=== PATIENT | female | born 1990 | race Caucasian/White ===

== ENCOUNTER 2016-06-16 11:35 | Emergency (ER) | payer MEDICAID ==
--- NOTE | 2016-06-16 14:29 | ERNOTE ---
ENT HPI Date of Service: 06/16/16 Presenting Symptoms: other - Sore throat Time Seen by Provider: 06/16/16 14:20 Source: patient, RN notes reviewed Exam Limitations: no limitations - Immun/Allergies/Home Medications Immunizations: IMMUNIZATION HX Immunizations Up to Date Yes History of Influenza Vaccine No Hx Pneumococcal Vaccination No Allergies/Adverse Reactions: Allergies Allergy/AdvReac Type Severity Reaction Status Date / Time ibuprofen AdvReac Verified 06/16/16 11:57 Home Medications: HOME MEDICATIONS NK [No Home Medication] 06/16/16 [Last Taken Unknown] - History of Present Illness Narrative: Dayanna is a 26 year old female who presents to the ED for a sore throat that began yesterday. She has also had a runny nose and cough. She has taken some cold medication without improvement. ENT Location: Present: throat Prearrival Treatment: Present: over the counter meds Associated Symptoms - ENT: Reports: cough, sore throat, nasal congestion/ drainage. Denies: fever, malaise, poor fluid intake, poor solid intake, facial pain/swelling, tooth pain, ear drainage, headache Review of Systems - Review of Systems Constitutional: Present: See HPI EYE: Present: no symptoms reported ENT: Present: See HPI Respiratory: Absent: shortness of breath, wheezing Cardiology: Present: no symptoms reported Gastrointestinal/Abdominal: Absent: nausea, vomiting, abdominal pain Genitourinary: Present: no symptoms reported Musculoskeletal: Absent: muscle pain, neck pain Skin: Present: no symptoms reported Neurological: Present: See HPI Endocrine: Present: no symptoms reported Hematologic/Lymphatic: Present: no symptoms reported Psych: Present: no symptoms reported - Patient's Past Medical History Patient History - Medical: No pertinent hx Patient History - Cardiac/Respiratory: No pertinent hx Patient History - Cancer: No Hx of Cancer Patient History - Surgical Procedures: Other - Social History Living Situations: home Smoking Status: Current every day smoker Have you smoked in the past 12 months: Yes Alcohol Use: occasionally Drug Use: none Physical Exam - Physical Exam General Appearance: Present: wd/wn, alert, no apparent distress Ears, Nose, Throat: Present: hearing grossly normal, nasal congestion, tonsillar swelling - right. Absent: abnormal TM (R), abnormal TM (L), sinus pain/drainage, tonsillar exudate Neck: Present: normal inspection, nontender, supple Respiratory: Present: no respiratory distress, normal breath sounds, no accessory muscle use, lungs clear Cardiovascular/Chest: Present: regular rate, rhythm, no murmur Neurological Exam: Present: alert, oriented, normal mood/affect Skin Exam: Present: normal color, warm/dry ED Progress - Results and Orders Patient's Lab Results:: I have reviewed the patient's lab results. - Vital Signs Patient's Vital Signs:: I have reviewed the patient's vital signs. Vital Signs: Vital Signs 06/16/16 11:56 Temperature 36.2 C L Pulse Rate 99 Respiratory 14 Rate Blood Pressure 107/73 O2 Sat by Pulse 100 Oximetry - Progress/Reassessment Chief Complaint: Sore Throat Progress:: Unchanged Departure Clinical Impression: Upper respiratory infection, viral - Departure Disposition: Home self-care Condition: Good Instructions: Upper Respiratory Infection, Adult, [id number] Additional Instructions: Increase fluid intake Nasal saline spray for congestion Humidifier Tylenol and/or ibuprofen for pain/fever Follow up with your doctor if symptoms persist longer than 10 days
[2016-06-16 14:42] VITALS: BP 105/65
== END 2016-06-16 14:37 | disposition home or self-care (01) ==
LOC: ER 11:35
DX: J06.9 Acute upper respiratory infection, unspecified (principal); F17.210 Nicotine dependence, cigarettes, uncomplicated

== ENCOUNTER 2016-09-03 10:26 | Emergency (ER) | payer MEDICAID ==
[2016-09-03 10:37] VITALS: BP 111/66
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
--- NOTE | 2016-09-03 11:25 | ERNOTE ---
ENT HPI Date of Service: 09/03/16 Presenting Symptoms: other - Sore throat Time Seen by Provider: 09/03/16 10:50 Source: patient, RN notes reviewed Exam Limitations: no limitations - Immun/Allergies/Home Medications Immunizations: IMMUNIZATION HX Immunizations Up to Date Yes History of Influenza Vaccine No Hx Pneumococcal Vaccination No Allergies/Adverse Reactions: Allergies Allergy/AdvReac Type Severity Reaction Status Date / Time ibuprofen AdvReac Verified 09/03/16 10:37 Home Medications: HOME MEDICATIONS NK [No Home Medication] 06/16/16 [Last Taken Unknown] - History of Present Illness Narrative: 26 y/o female ambulatory to the ED for a sore throat that began a few days ago. She has also been trying to get after just stopping her Depo Provera, and has taken home tests with questionable results. She was in town visiting a relative, and decided that we didn't look busy so she should come in for a strep test and maybe a test. She has an appointment with her OB/ Ssrs Report Developer next month. ENT Location: Present: throat Prearrival Treatment: Present: no prearrival treatment Associated Symptoms - ENT: Reports: sore throat. Denies: fever, malaise, poor fluid intake, poor solid intake, cough, voice change, nasal congestion/drainage , facial pain/swelling, ear drainage, headache Review of Systems - Review of Systems Constitutional: Absent: fever, chills, malaise EYE: Present: no symptoms reported ENT: Present: See HPI Respiratory: Present: See HPI Gastrointestinal/Abdominal: Present: no symptoms reported Genitourinary: Present: other - irregular menses. Absent: frequency, pain, discharge Musculoskeletal: Absent: muscle pain, neck pain Skin: Absent: rash, lesions Neurological: Present: See HPI Endocrine: Present: no symptoms reported Hematologic/Lymphatic: Present: no symptoms reported Psych: Present: no symptoms reported - Patient's Past Medical History Patient History - Medical: No pertinent hx Patient History - Cardiac/Respiratory: No pertinent hx Patient History - Cancer: No Hx of Cancer Patient History - Surgical Procedures: Other Patient History - Other: None LMP (Calendar): 08/24/16 - Social History Living Situations: home Abuse History: No History of abuse Psych History: No pertinent hx Smoking Status: Current every day smoker Cigarettes Packs Per Day: 0.5 Alcohol Use: occasionally Drug Use: none - Immunizations Immunizations Up to Date: Yes Hx Pneumococcal Vaccination: No History of Influenza Vaccine: No Physical Exam - Physical Exam General Appearance: Present: wd/wn, alert, no apparent distress Eye Exam: Normal inspection: bilateral Ears, Nose, Throat: Present: pharyngeal erythema, tonsillar swelling. Absent: nasal congestion, sinus pain/drainage, pharyngeal swelling, tonsillar exudate, dry mucous membranes Neck: Present: normal inspection, nontender, supple. Absent: lymphadenopathy (R ), lymphadenopathy (L) Respiratory: Present: no respiratory distress, normal breath sounds, no accessory muscle use, lungs clear Cardiovascular/Chest: Present: regular rate, rhythm, no murmur Neurological Exam: Present: alert, oriented, normal mood/affect, no motor/ sensory deficits Skin Exam: Present: normal color, warm/dry ED Progress - Results and Orders Patient's Lab Results:: I have reviewed the patient's lab results. - Vital Signs Patient's Vital Signs:: I have reviewed the patient's vital signs. Vital Signs: Vital Signs 09/03/16 09/03/16 10:26 10:30 Temperature 36.7 C Pulse Rate 89 Respiratory 14 Rate Blood Pressure 107/73 111/66 O2 Sat by Pulse 100 Oximetry - Progress/Reassessment Chief Complaint: Sore Throat Progress:: Unchanged Plan - Plan Plan: Negative strep test Discussed home tests vs. having a blood test here. Informed that this is not warranted on an emergent basis today. Departure Clinical Impression: Sore throat (viral), Irregular menses - Departure Disposition: Home self-care Condition: Good Instructions: Sore Throat, [id number], Test Information Additional Instructions: Stop smoking Decrease caffeine intake Avoid alcohol Take a vitamin See mallet and die cutter as scheduled Referrals: Tyler Feldman MD [Primary Care Provider] -
== END 2016-09-03 11:21 | disposition home or self-care (01) ==
LOC: ER 10:26
DX: J02.9 Acute pharyngitis, unspecified (principal); N92.6 Irregular menstruation, unspecified; F17.210 Nicotine dependence, cigarettes, uncomplicated

== ENCOUNTER 2016-10-02 19:56 | Emergency (ER) | payer MEDICAID ==
[2016-10-02 20:06] VITALS: BP 108/68
--- NOTE | 2016-10-02 20:51 | ERNOTE ---
Back Pain ER HPI Presenting Symptoms: injury/pain to back Time Seen by Provider: 10/02/16 20:36 Source: patient Exam Limitations: no limitations Immunizations: IMMUNIZATION HX Immunizations Up to Date Yes History of Influenza Vaccine No Hx Pneumococcal Vaccination No Allergies/Adverse Reactions: Allergies ibuprofen Adverse Reaction (Verified 09/03/16 10:37) DRUMMOND Home Medications: HOME MEDICATIONS Naproxen [Naprosyn] 500 mg PO BID #20 tablet 10/02/16 [Last Taken Unknown] Sulfamethoxazole/Trimethoprim [Bactrim Ds] 1 tab PO BID 10/02/16 [Last Taken Unknown] traMADol HCL [Ultram] 50 - 100 mg PO QID PRN #20 tab 10/02/16 [Last Taken Unknown] Narrative: Pt was playing on the slide with her 2 yo child. At the bottom of the slide it is level with the ground with a small amount of foam padding. She came off the slide and slid directly onto her bottom. This was somewhat painful but she thought would go away. Throughout the day the pain has not improved Timing: Reports: getting worse Quality/Severity: Reports: moderate Location of pain: Reports: other - right sacrum down to coccyx Activities at Onset: Reports: activity Recent Injury?: Reports: yes Possible Precipitating Factor: Reports: trauma Modifying Factors - (Improves): Reports: nothing Modifying Factors - (Worsens): Reports: other - sitting Associated Symptoms: Denies: numbess/weakness in legs Review of Systems - Review of Systems Constitutional: Present: no symptoms reported EYE: Present: no symptoms reported ENT: Present: no symptoms reported Respiratory: Present: no symptoms reported Cardiology: Present: no symptoms reported Gastrointestinal/Abdominal: Absent: no symptoms reported Genitourinary: Present: no symptoms reported Musculoskeletal: Present: See HPI. Absent: back pain Skin: Present: no symptoms reported Neurological: Absent: weakness, numbness Endocrine: Present: no symptoms reported Hematologic/Lymphatic: Present: no symptoms reported Psych: Present: no symptoms reported - Patient's Past Medical History Patient History - Medical: UTI'S Patient History - Cardiac/Respiratory: No pertinent hx Patient History - Cancer: No Hx of Cancer Patient History - Surgical Procedures: Other Patient History - Other: None LMP (females 10-50): this week LMP (Calendar): 08/24/16 - Social History Living Situations: significant other Abuse History: No History of abuse Psych History: No pertinent hx Smoking Status: Current every day smoker Alcohol Use: occasionally Drug Use: none - Immunizations Immunizations Up to Date: Yes Hx Pneumococcal Vaccination: No History of Influenza Vaccine: No Physical Exam - Physical Exam General Appearance: Present: wd/wn, alert, no apparent distress Neck: Present: normal inspection, nontender, supple Respiratory: Present: no respiratory distress Back Exam: Present: normal inspection, normal range of motion, no CVA tenderness , no vertebral tenderness, other - Tender from right SI along the right lateral border of the sacrum to the coccyx, no tenderness of body or left side of sacrum or ischial tuberosities Extremity Exam: Present: normal inspection, non-tender, normal range of motion, pelvis stable Skin Exam: Present: normal color, warm/dry ED Progress - Vital Signs Vital Signs: Vital Signs 10/02/16 19:59 Temperature 36.8 C Pulse Rate 88 Respiratory 14 Rate Blood Pressure 108/68 O2 Sat by Pulse 100 Oximetry - X-Ray X-Ray #1 X-Ray: lumbosacral - Sacrum/ coccyx: sight irregularity to distal coccygeal segment, possible non-displaced fracture Interpretation: Interp. by me - Progress/Reassessment Chief Complaint: Back Pain Departure Clinical Impression: Fractured coccyx Qualifiers: Encounter type: initial encounter Fracture type: closed Qualified Code(s): S32.2XXA - Fracture of coccyx, initial encounter for closed fracture - Departure Disposition: Home self-care Condition: Good Instructions: Tailbone Injury, [id number] Referrals: Tlyer Feldman MD [Primary Care Provider] - Prescriptions: Naproxen [Naprosyn] 500 mg PO BID #20 tablet traMADol HCL [Ultram] 50 - 100 mg PO QID PRN #20 tab PRN Reason: Pain
--- OUTSIDE RECORDS SUMMARY | 2016-10-02 21:09 | XMS REPORT | Continuity of Care Document ---
:1990 Author Organization [facility] ([facility]) Address [address] [place] [address] Phone [phone] Care Team Providers Name Role Phone GastonTyler Primary Care Provider [phone] Source Comments This disclosure is being made pursuant to the Care Everywhere program, applicable federal and state laws, and may not contain all informaitonavailable regarding this patient.[facility] ([facility]) Active Allergies and Adverse Reactions No Known [...] every 8 hours as needed. Indications: Nausea pvgvbwo-iarkflcxhvnqr-lkn Take 1 Tab by 12 Tab 0 [...]
[2016-10-02] MEDS ORDERED: traMADol HCL 50 MG TABLET PO ONE (22:13)
[2016-10-02] MEDS ORDERED: traMADol HCL 50 MG TABLET ONE (22:20)
== END 2016-10-02 22:22 | disposition home or self-care (01) ==
LOC: ER 19:56
DX: S32.2XXA Fracture of coccyx, initial encounter for closed fracture (principal); W09.0XXA Fall on or from playground slide, initial encounter; Z87.440 Personal history of urinary (tract) infections; F17.210 Nicotine dependence, cigarettes, uncomplicated

== ENCOUNTER 2016-10-06 23:00 | Emergency (ER) | payer MEDICAID ==
[2016-10-06] MEDS ORDERED: traMADol HCL 50 MG TABLET PO ONE (23:35)
[2016-10-06] MEDS ORDERED: traMADol HCL 50 MG TABLET ONE (23:37)
--- NOTE | 2016-10-06 23:44 | ERNOTE ---
Back Pain ER HPI Time Seen by Provider: 10/06/16 23:27 Source: patient Exam Limitations: no limitations Immunizations: IMMUNIZATION HX Immunizations Up to Date Yes History of Influenza Vaccine No Hx Pneumococcal Vaccination No Allergies/Adverse Reactions: Allergies ibuprofen Adverse Reaction (Verified 09/03/16 10:37) DRUMMOND Home Medications: HOME MEDICATIONS Naproxen [Naprosyn] 500 mg PO BID #20 tablet 10/02/16 [Last Taken Unknown] Sulfamethoxazole/Trimethoprim [Bactrim Ds] 1 tab PO BID 10/02/16 [Last Taken Unknown] traMADol HCL [Ultram] 50 - 100 mg PO QID PRN #20 tab 10/02/16 [Last Taken Unknown] Narrative: Patient fell going down a slide and injured her tailbone. She was seen in the ER and given prescription for tramadol and naproxen. Her pain is not getting better, she now has pain going down the back of her right thigh and numbness. She feels that her right hip is giving out on her, she has not fallen again, no problems with bowel and bladder function Date (Duration): 10/01/16 Location of pain: Reports: lower back, radiating to rt thigh/leg Recent Injury?: Reports: yes Associated Symptoms: Denies: fever/chills, sweating, constipation/incontinence, nausea/vomiting, problems urinating, difficulty walking, lightheadedness Prior Treament: Reports: recently seen Review of Systems - Review of Systems Constitutional: Absent: recent illness, fever Respiratory: Absent: shortness of breath Cardiology: Absent: chest pain Gastrointestinal/Abdominal: Absent: nausea Genitourinary: Present: no symptoms reported Musculoskeletal: Present: See HPI Neurological: Present: See HPI, numbness - Patient's Past Medical History Patient History - Medical: UTI'S Patient History - Cardiac/Respiratory: No pertinent hx Patient History - Cancer: No Hx of Cancer Patient History - Surgical Procedures: Other Patient History - Other: None LMP (females 10-50): last week LMP (Calendar): 08/24/16 - Social History Living Situations: significant other Abuse History: No History of abuse Psych History: No pertinent hx Smoking Status: Current every day smoker Alcohol Use: occasionally Drug Use: none - Immunizations Immunizations Up to Date: Yes Hx Pneumococcal Vaccination: No History of Influenza Vaccine: No Physical Exam - Physical Exam General Appearance: Present: wd/wn, alert, no apparent distress Respiratory: Present: no respiratory distress, normal breath sounds, lungs clear Cardiovascular/Chest: Present: regular rate, rhythm, no murmur Back Exam: Present: normal inspection, no vertebral tenderness, other - right lower buttock, pain on right leg straigt leg raise Neurological Exam: Present: alert, oriented, normal mood/affect, no motor/ sensory deficits Skin Exam: Present: normal color, warm/dry ED Progress - Vital Signs Patient's Vital Signs:: I have reviewed the patient's vital signs. Vital Signs: Vital Signs 10/06/16 23:05 Temperature 36.6 C Pulse Rate 98 Respiratory 14 Rate Blood Pressure 114/71 O2 Sat by Pulse 100 Oximetry - X-Ray X-Ray #1 X-Ray: hip - no acute findings Interpretation: Interp. by me - Progress/Reassessment Chief Complaint: Back Pain Progress Note-Subjective: 10/07/16 00:30 pain better after tramadol, discussed normal hip xray Departure Clinical Impression: Contusion of lower back Qualifiers: Encounter type: initial encounter Qualified Code(s): S30.0XXA - Contusion of lower back and pelvis, initial encounter - Departure Disposition: Home self-care Condition: Good Instructions: Sciatica, [id number] Additional Instructions: take your pain medications as prescribed, call your doctor in the morning for follow up Referrals: Tyler Feldman MD [Primary Care Provider] -
--- OUTSIDE RECORDS SUMMARY | 2016-10-07 00:18 | XMS REPORT | Continuity of Care Document ---
:1990 Author Organization [facility] ([facility]) Address [address] [place] [address] Phone [phone] Care Team Providers Name Role Phone GastonTyler Primary Care Provider [phone] Source Comments This disclosure is being made pursuant to the Care Everywhere program, applicable federal and state laws, and may not contain all informaitonavailable regarding this patient.[facility] ([facility]) Active Allergies and Adverse Reactions No [...] every 8 hours as needed. Indications: Nausea baolnxq-kpsnjbvyeykon-eij Take 1 Tab by 12 Tab 0 [...]
[2016-10-07 00:38] VITALS: BP 129/73
== END 2016-10-07 00:36 | disposition home or self-care (01) ==
LOC: ER 23:00
DX: S30.0XXA Contusion of lower back and pelvis, initial encounter (principal); W09.0XXD Fall on or from playground slide, subsequent encounter

== ENCOUNTER 2019-09-20 22:34 | Observation (INO) ==
[2019-09-20] MEDS ORDERED: RINGER'S SOLUTION,LACTATED 1,000 ML IV PRN (22:42)
[2019-09-21] MEDS: TERBUTALINE SULFATE 1 MG/ML VIAL SC ONE ×2 (00:34→01:47)
[2019-09-21] MEDS: ACETAMINOPHEN 500 MG TABLET PO ONE (00:43)
[2019-09-21 02:49] LABS: Urine Bilirubin Negative (NEGATIVE); Urine Blood Negative /ul (NEGATIVE); Urine Ketone Negative (NEGATIVE); Urine Nitrite Negative (NEGATIVE); Urine Protein Negative (NEGATIVE); Urine Specific Gravity <=1.005 SP.GR. (1.005-1.010); Urine Urobilinogen Normal (NORMAL); Urine pH 6.5 pH (5.0-7.0)
[2019-09-21 02:54] VITALS: BP 109/69
[2019-09-21] MEDS: BETAMETHASONE ACETATE,SOD PHOS 6 MG/ML VIAL IM ONE (02:54)
[2019-09-21] MEDS: NIFEdipine 10 MG CAPSULE PO ONE (02:54)
[2019-09-21 03:04] LABS: Urine Appearance Clear (CLEAR); Urine Bacteria None Seen; Urine Color Pale Yellow; Urine RBC None Seen /hpf (0-5); Urine WBC None Seen /hpf (0-5)
--- NOTE | 2019-09-21 03:58 | HP ---
Chief Complaint - Chief Complaint Date of Service: 09/21/19 Time of Service: 03:49 Chief Complaint: contractions History of Present Illness: 29 year old at 32w 5d who presented to labor and delivery complaining of contractions q3-5 minutes since 202909/20/2019. She denies vaginal bleeding or loss of fluid. Denies urinary symptoms. Fetus is active. GBS was collected on admission to L&D 2250 ft/20/-3 anterior 0020 ft/20/-3 mid position 0130 -3 posterior 0235 3 mid position She is s/p 2 doses of terbutaline and one dose of procardia 30 mg PO x1 Betamethasone given at 0254 Medical History (Last Reviewed 09/21/19 @ 03:52 by Maggie Walter MD) Hemorrhagic cyst of right ovary (Acute) with uncertain viability (Acute) 5w3d by gestational sac by u/s on 03/11/19. Body piercing Onset Date: Unknown Hallux valgus Onset Date: ~09/2011 Right foot Migraine Onset Date: 05/10/13 w/aura Seasonal allergies Onset Date: Unknown Spina bifida aperta of lumbar region without hydrocephalus Onset Date: Unknown Tattoos Onset Date: Unknown Varicose veins of lower extremity Onset Date: Unknown Wears glasses Onset Date: Unknown Abdominal pain in female (Resolved) Onset Date: Unknown Abnormal Pap smear of cervix Onset Date: ~2012 Acute streptococcal pharyngitis (Resolved) Onset Date: Unknown Back pain (Resolved) Onset Date: ~02/2013 Pulled muscles in shoulder, back and pinched nerve in back Bacterial vaginitis (Resolved) Onset Date: Unknown Cervical dysplasia Onset Date: ~2017 Col[place] LLQ abdominal pain (Resolved) Conjunctivitis (Resolved) Onset Date: Unknown Contusion of left foot, initial encounter (Resolved) Onset Date: Unknown Contusion of left knee (Resolved) Onset Date: Unknown Contusion of lower back (Resolved) Onset Date: Unknown Ectopic Onset Date: 02/20/15 In [place]tx[place] w/medication Foot pain Onset Date: ~08/2011 Peroneal tendon weakness Fractured coccyx (Resolved) Onset Date: ~09/2016 Hematuria (Resolved) Onset Date: Unknown Irregular menses (Resolved) Onset Date: Unknown Knee pain Onset Date: Unknown Left Left ovarian cyst (Resolved) Onset Date: Unknown Simple 2.38cm Meniscal injury (Resolved) Onset Date: Unknown Pelvic pain (Resolved) Onset Date: Unknown Plantar fasciitis of right foot (Resolved) Onset Date: Unknown contractions (Resolved) Onset Date: ~2016 Sciatica (Resolved) Onset Date: Unknown Strep throat (Resolved) Onset Date: Unknown Synovitis and tenosynovitis Onset Date: ~2013 Toe contusion (Resolved) Onset Date: Unknown UTI (urinary tract infection) (Resolved) Onset Date: Unknown Upper respiratory infection, viral (Resolved) Onset Date: Unknown Surgical History: Surgical History (Last Reviewed 09/21/19 @ 03:52 by Maggie Walter MD) H/O arthroscopic knee surgery Onset Date: 09/21/13 [place]-Synovectomy History of colposcopy Onset Date: 08/07/17 History of loop electrical excision procedure (LEEP) Onset Date: 10/17/17 [place] teeth extracted Onset Date: ~2007 Family History: Family History (Last Reviewed 09/21/19 @ 03:52 by Maggie Walter MD) Mother Heart disease Heart defect/arrhythmia, tachycardia Father Alive and well Grandmother Asthma On O2 @ age 68 Social History: (Last Reviewed 09/21/19 @ 03:52 by Maggie Walter MD) Social History: adopted: Yes usp: No Marital status: lives independently: Yes household members: significant other, children number of children: 3 current occupational status: employed current occupation: manager health current occupational exposures/hazards: No Highest education level completed: some college, no degree Sexually Active: Yes Service: No Tobacco: Smoking Status: Former smoker Smoking cigarettes per day: 5 Alcohol: alcohol intake: current alcohol intake frequency: a few times a month details: No alcohol since + UPT Substance Use: substance use type: does not use Dietary Habits: caffeine: Yes caffeine comment: 1-2/day Exercise: Physical activity type: walking frequency: other Alicia/Anabaptism: agree to transfusion: Yes Review Of Systems (GEN) - Review of Systems Generalized/Overall Review: Present: No Symptoms Reported Genitourinary: Present: Other - contractions Misc: All systems neg except as marked Immunizations: IMMUNIZATION HX Immunizations Up to Date Yes History of Influenza Vaccine Yes Hx Pneumococcal Vaccination No Allergies/Adverse Reactions: Allergies Allergy/AdvReac Type Severity Reaction Status Date / Time ibuprofen AdvReac Mild Headache Verified 09/20/19 23:00 Home Medications: HOME MEDICATIONS [id number] 400 mcg-om3 35 mg-dha 25 mg-epa 5 mg-fish oil chewable tablet 2 tab PO DAILY tab 03/11/19 [Last Taken Unknown] Exam - Exam Vital Signs: Vital Signs - Last Taken Temp 36.7 C 09/20/19 23:21 Pulse 110 H 09/21/19 02:54 Resp 18 09/20/19 23:21 BP 109/69 09/21/19 02:54 Pulse Ox 99 09/20/19 23:21 Constitutional: Present: Alert, Oriented x3, Cooperative, Well developed, Well nourished, No distress ENT Exam: Present: hearing grossly normal Eye Exam: bilateral eye: normal inspection Neck: Present: normal inspection Back Exam: Present: normal inspection, no CVA tenderness Breasts: Present: Exam deferred Respiratory: Present: lungs clear, normal breath sounds Cardiovascular/Chest: Present: regular rate, rhythm Abdomen: Present: soft, nontender, nondistended, no rebound tenderness /Rectal: Present: Other - 07/15/ mid position per RN exam Extremity: Present: non-tender, no calf tenderness Skin Exam: Present: normal color, warm/dry, no cyanosis Neurologic: Present: alert, normal mood/affect, oriented x 3 Appearance: Present: appropriate appearance, appropriate insight, neat, no memory impairment Eye contact: Present: cooperative, good eye contact, normal speech Thoughts: Present: normal thought pattern Diagnostic Studies: Laboratory Results Urine Color Pale yellow 09/21/19 02:45 Urine Appearance Clear (CLEAR) 09/21/19 02:45 Urine pH 6.5 pH (5.0-7.0) 09/21/19 02:45 Ur Specific [place] <=1.005 SP.GR. (1.005-1.010) 09/21/19 02:45 Urine Protein Negative mg/dL (NEGATIVE) 09/21/19 02:45 Urine Glucose (UA) Negative mg/dL (NEGATIVE) 09/21/19 02:45 Urine Ketones Negative mg/dL (NEGATIVE) 09/21/19 02:45 Urine Blood Negative /ul (NEGATIVE) 09/21/19 02:45 Urine Nitrate Negative (NEGATIVE) 09/21/19 02:45 Urine Bilirubin Negative mg/dl (NEGATIVE) 09/21/19 02:45 Urine Urobilinogen Normal EU/dl (NORMAL) 09/21/19 02:45 Ur Leukocyte Esterase Negative /ul (NEGATIVE) 09/21/19 02:45 Urine RBC None seen /hpf (0-5) 09/21/19 02:45 Urine WBC None seen /hpf (0-5) 09/21/19 02:45 Ur Epithelial Cells Trace /hpf (0-5) 09/21/19 02:45 Urine Bacteria None seen (NONE) 09/21/19 02:45 Urine Culture Comments No culture indicated 09/21/19 02:45 Assessment/Plan - Narrative Narrative: 29 year old at 32w 5d 1. PTL: continues to make cervical change and regular contractions. s/p 2 doses of terbutaline and one dose of procardia without a change in the patient's contractions. UA is negative. Wet prep pending. GBS collected. Vertex by exam and US done 09/16/2019. s/p steroids. Transfer to [facility] for a higher level of care - Assessment/Plan (1) Threatened labor Problem: Acute Qualifiers: Trimester: third trimester Qualified Code(s): O47.03 - False labor before 37 completed weeks of gestation, third trimester
--- NOTE | 2019-09-21 04:01 | DS ---
(1) Threatened labor Problem: Acute Qualifiers: Trimester: third trimester Qualified Code(s): O47.03 - False labor before 37 completed weeks of gestation, third trimester Date of Discharge:: 09/21/19 Hospital Course: The patient was observed and had cervical change and regular contractions not responding to terbutaline or procardia. She received the first dose of steroids. For this reason she was transferred to [facility]. Procedures Performed: none Results and Findings: Lab Pending Results 09/21/19 02:45: Urine Color Pale yellow, Urine Appearance Clear, Urine pH 6.5, Ur Specific [place] <=1.005, Urine Protein Negative, Urine Glucose (UA) Negative, Urine Ketones Negative, Urine Blood Negative, Urine Nitrate Negative, Urine Bilirubin Negative, Urine Urobilinogen Normal, Ur Leukocyte Esterase Negative, Urine RBC None seen, Urine WBC None seen, Ur Epithelial Cells Trace, Urine Bacteria None seen, Urine Culture Comments No culture indicated Disposition: Short Term Hospital Inpatient Condition: Good Discharge Activity: Activity as tolerated Discharge Diet: General/regular food Referrals: Tyler Feldman MD [Primary Care Provider] - Complete Home Medications List: Complete Home Medication List: [id number] 400 mcg-om3 35 mg-dha 25 mg-epa 5 mg-fish oil chewable tablet 2 tab PO DAILY tab 03/11/19
== END 2019-09-21 04:15 | disposition short-term general hospital (02) ==
LOC: OBCLINIC 22:34 → INTOOBSV 09-21 03:29 → OB 09-21 03:29
PROVIDERS: ADMIT Obstetrics & Gynecology; ATTEND Obstetrics & Gynecology
DX: O47.03 False labor before 37 completed weeks of gestation, third trimester
CPT/HCPCS: 59025; 81001; 87081; 87210; 96372

== ENCOUNTER 2019-10-13 20:25 | Observation (INO) ==
[2019-10-13 21:23] VITALS: BP 110/69
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
[2019-10-13] MEDS ORDERED: BETAMETHASONE ACETATE,SOD PHOS 6 MG/ML VIAL IM ONE (23:27)
--- NOTE | 2019-10-14 08:44 | PN ---
Subjective - Date and Time Seen Date: 10/14/19 Time: 08:40 Subjective Narrative: Patient without complaints Objective Objective Narrative: See vital signs - Review of Systems Generalized/Overall Review: Reports: No Symptoms Reported Misc: All systems neg except as marked - Vitals Vitals: Last Vital Signs Temp 37.4 C 10/13/19 21:05 Pulse 97 10/13/19 21:05 Resp 18 10/13/19 21:05 BP 110/69 10/13/19 21:05 Pulse Ox 96 10/13/19 21:05 - Exam Constitutional: Present: Alert, Oriented x3, Cooperative, No distress ENT Exam: Present: hearing grossly normal Neck: Present: normal inspection Breasts: Present: Exam deferred Abdomen: Present: soft, nontender, nondistended /Rectal: Present: Exam deferred Extremity: Present: non-tender, no calf tenderness Skin Exam: Present: normal color, warm/dry, no cyanosis Neurologic: Present: alert, normal mood/affect, oriented x 3 Appearance: Present: appropriate appearance, appropriate insight Eye contact: Present: cooperative, good eye contact Thoughts: Present: normal thought pattern Assessment/Plan Plan Narrative: 29 year old at 36w 0d No cervical change overnight. Discharge patient US for growth at 1100 Follow-up with Dr. Cleveland or sooner for any other concerns
--- NOTE | 2019-10-14 08:58 | DS ---
Date of Discharge:: 10/14/19 Hospital Course: The patient was admitted overnight and given a dose of steroids. She did not have significant cervical change and thus will be discharged today Procedures Performed: none Discharge Location: Home Disposition: Home self-care Condition: Good Discharge Activity: Activity as tolerated Discharge Diet: General/regular food Referrals: Tyler Feldman MD [Primary Care Provider] - Complete Home Medications List: Complete Home Medication List: [id number] 400 mcg-om3 35 mg-dha 25 mg-epa 5 mg-fish oil chewable tablet 2 tab PO DAILY tab 03/11/19
== END 2019-10-14 09:15 | disposition home or self-care (01) ==
LOC: OBCLINIC 20:25 → OB 20:25
PROVIDERS: ADMIT Obstetrics & Gynecology; ATTEND Obstetrics & Gynecology
DX: O71.89 Other specified obstetric trauma; Z3A.36 36 weeks gestation of pregnancy; O60.03 Preterm labor without delivery, third trimester
CPT/HCPCS: 59025; 87081; 96372; G0378

== ENCOUNTER 2019-10-15 18:19 | Inpatient (IN) ==
[2019-10-15] MEDS ORDERED: DEXTROSE 5%-LACTATED RINGERS 500 ML IV PRN (20:45)
[2019-10-15 21:05] LABS: Hematocrit 33.3 % (37.0-47.0); Hemoglobin 11.1 gm/dL (12.5-16.0); Mean Cell Volume 86.3 fl (78-100); Mean Corpuscular Hemoglobin 28.8 pg (27-31); Mean Corpuscular Hgb Conc 33.3 g/dl (32-36); Mean Platelet Volume 9.8 fl (8-12.5); Neutrophil # 12.6 K/mm3 (1.3-6.0); Neutrophil % 76.4 % (42-75.0); Platelet Count 247 K/mm3 (150-450); Red Blood Count 3.86 M/mm3 (4.2-5.4); Red Cell Distribution Width 12.4 % (11.5-14.0); White Blood Count 16.5 K/mm3 (4.0-10.5)
[2019-10-15] MEDS: DEXTROSE 5%-LACTATED RINGERS 1,000 ML IV PRN (21:28)
[2019-10-15 22:21] LABS: Cocaine Ur Negative (NEGATIVE); Urine Barbiturate Negative (NEGATIVE); Urine Benzodiazepines Negative (NEGATIVE); Urine Opiates Negative (NEGATIVE); Urine PCP Negative (NEGATIVE); Urine THC Negative (NEGATIVE)
[2019-10-16] MEDS: DEXTROSE 5%-LACTATED RINGERS 1,000 ML IV PRN (00:53)
[2019-10-16] MEDS ORDERED: RINGER'S SOLUTION,LACTATED 1,000 ML IV ONE (05:48)
[2019-10-16] MEDS ORDERED: ONDANSETRON 4 MG TAB.RAPDIS PO PRN (05:48)
[2019-10-16] MEDS ORDERED: OXYTOCIN/DEXTROSE 5%-WATER 30 UNITS/500 ML BAG IV ONE (05:48)
[2019-10-16] MEDS ORDERED: ceFAZolin SODIUM 1 GM VIAL IV PRN (07:00)
[2019-10-16] MEDS ORDERED: OXYTOCIN 20 UNITS in RINGER'S SOLUTION,LACTATED 1,000 ML IV ONE ×2 (07:00→09:06)
[2019-10-16] MEDS ORDERED: RINGER'S SOLUTION,LACTATED 1,000 ML IV PRN (09:06)
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
[2019-10-16] MEDS ORDERED: ceFAZolin SODIUM 1 GM VIAL ONE (09:16)
--- NOTE | 2019-10-16 09:29 | ANES ---
Anesthesia Pre Procedure Eval Vitals/Labs: Last Vital Signs Temp 37.5 C 10/15/19 19:00 Pulse 108 H 10/15/19 19:00 Resp 16 10/15/19 19:00 BP 119/72 10/15/19 19:00 Pulse Ox 100 10/15/19 19:00 HOME MEDICATIONS [id number] 400 mcg-om3 35 mg-dha 25 mg-epa 5 mg-fish oil chewable tablet 2 tab PO DAILY tab 03/11/19 [Last Taken 10/12/19] Allergies/Adverse Reactions: Allergies Allergy/AdvReac Type Severity Reaction Status Date / Time ibuprofen AdvReac Mild Headache Verified 10/15/19 18:33 - Planned Procedure Planned Procedure: C/S Medication List Reviewed:: Yes Allergies Verified: Yes Medical History (Last Reviewed 10/16/19 @ 09:28 by Ken Bee CRNA) Body piercing (Chronic) Onset Date: Unknown Hallux valgus Onset Date: ~09/2011 Right foot Migraine Onset Date: 05/10/13 w/aura Seasonal allergies Onset Date: Unknown Spina bifida aperta of lumbar region without hydrocephalus Onset Date: Unknown Cervical dysplasia Onset Date: ~2017 Ectopic Onset Date: 02/20/15 [place]-tx'd w/medication Fractured coccyx (Resolved) Onset Date: ~09/2016 Surgical History (Last Reviewed 10/16/19 @ 09:28 by Ken Bee CRNA) H/O arthroscopic knee surgery Onset Date: 09/21/13 [place]-Synovectomy History of colposcopy Onset Date: 08/07/17 History of loop electrical excision procedure (LEEP) Onset Date: 10/17/17 [place] teeth extracted Onset Date: ~2007 Family History (Last Reviewed 10/16/19 @ 09:28 by Ken Bee CRNA) Mother Heart disease Heart defect/arrhythmia, tachycardia Father Alive and well Grandmother Asthma On O2 @ age 68 - Family Anesthesia History Family History:: no untoward family reactions to anesthesia, no familial bleeding tendencies, no family history of clotting disorders, no family history of premature - Airway/Neck/Teeth Within Normal Limits:: Yes Teeth Condition: intact Mallampatti Score: 2 Thyromental (T-M) distance: > 6 cm Mandibulo Hyoid distance: > 3 cm - Respiratory Respiratory Physical: lungs clear - Cardiovascular Tolerate Activity: Good Heart Sounds: S1 & S2, Regular - Gastrointestinal NPO since: mn - Anesthesia Assessment and Plan ASA Class: PS, II, E Anesthesia Type Plan: Block - Bilateral ultrasound guided TAP blocks for postop analgesia, Spinal
[2019-10-16] MEDS ORDERED: MIDAZOLAM HCL/PF 5 MG/ML VIAL ONE (09:31)
[2019-10-16] MEDS ORDERED: PROPOFOL VIAL IV ONE (09:31)
[2019-10-16] MEDS ORDERED: fentaNYL CITRATE/PF 50 MCG/ML AMPUL ONE (09:31)
[2019-10-16] MEDS ORDERED: ONDANSETRON HCL/PF 2 MG/ML VIAL ONE (09:31)
[2019-10-16] MEDS ORDERED: BUPIVACAINE HCL/EPINEPHRINE/PF 30 ML VIAL IJ ONE (09:31)
--- NOTE | 2019-10-16 11:14 | ANES ---
Post Anesthesia Discharge - Transfer of Care Transfer of Care handoff given to nurse: Yes - Discharge from PACU Discharge from PACU when meets criteria: Yes - Discharge to ASU Discharge to ASU-no complications/pt stable: Yes
--- NOTE | 2019-10-16 11:15 | ANES ---
Post Anesthesia Assessment - Vital Signs Vitals: Last Vital Signs Temp 36.5 C 10/16/19 11:00 Pulse 79 10/16/19 11:10 Resp 16 10/16/19 11:10 BP 116/69 10/16/19 11:10 Pulse Ox 100 10/16/19 11:10 Airway Patency: Normal - Mental Status Level Of Consciousness: Awake - Pain Level Pain Score: 0 - N/V Assessment Nausea/Vomiting Presence: None Dehydration:: No
--- NOTE | 2019-10-16 11:15 | ANES ---
Anesthesia Procedure Note Procedure Note: ANESTHESIA PROCEDURE NOTE Date of Procedure: 10/16/2019. Time of procedure: 1105. Performed by: Ken Bee CRNA Catering Assistant: None. Preprocedure diagnosis: section. Post procedure diagnosis: Same. Procedure: Bilateral ultrasound-guided transversus abdominis plane block for postop analgesia. Indications: The patient is a 29-year-old female post section. Findings: See below. Details of the procedure: ChloraPrep was used on the patient's abdomen and the procedure was performed under sterile technique. The right abdominal fascial layer between the internal oblique muscle and the transversus abdominis muscles was identified under ultrasound guidance. A 21-gauge 4 inch block needle was inserted under ultrasound guidance to the target fascial plane. 15 mL's of 0.5% bupivacaine plus epinephrine 1:200,000 was injected after negative aspiration for blood. The needle was removed intact and the procedure was then repeated at the left side. No complications were noted. The images were retained in the hospital medical database. EBL: Minimal. Fluids: N/A. Specimen: N/A. Post procedure condition: The patient tolerated the procedure well. No complications were noted. Thank you for this consultation. Ken Bee CRNA
--- NOTE | 2019-10-16 11:21 | OR ---
Operative Report - Dictated Report Narrative: Indication: 29-year-old 5 para 3 admitted for labor at 36 1/7 weeks during course of observation tracing had periods of sinusoidal rhythm and frequent late decelerations which became more frequent. Status: Planned Pre Operative Diagnosis: 36 2/7th week intrauterine . SGA with developing IUGR. intolerance to labor. Suspected partial placental abruption. Post Operative Diagnosis: 36 2/7th week intrauterine . SGA with developing IUGR. intolerance to labor. Suspected partial placental abruption. Procedure Preformed: Primary Low Transverse Section Surgeon: Robin Cleveland DO Shipping And Receiving Material Handler: OR Staff Anesthesia: Spinal,TAP block Estimated Blood Loss: 300 mL Urine Output: 250 mL of clear urine Fluids Given: 2100 mL of crystalloid Drains: Antunez to gravity Surgical Complications: None Specimens: Placenta to pathology Findings: Female high in the uterine cavity delivered at 1008 on 5-20 with Apgars 8 9, weighing 2225 g with tight nuchal cord x1. Normal uterus, tubes, ovaries. Placenta appeared normal. Technique: The patient was taken to the operating room and placed in dorsal supine position with a left lateral tilt. After adequate anesthesia, antunez catheter insertion,SCDs placed, and 2 g of Ancef given preoperatively, the abdominal cavity was entered via a modified Emre-Alba incision. Two rolled laps were placed in the pericolic gutters on either side of the uterus. A transverse incision was made in the lower uterine segment and extended laterally and upwardly with digital traction. Clear fluid was noted upon amniotomy. Because the was so high in the uterine cavity, a Kiwi Pro Palm pump was applied to the vertex to assist in bringing down and out through the hysterotomy. It required one easy pull with pressure at 500 mm per mercury. Total application time was less than 20 seconds. The cord was milked 3 times then clamped and cut and was handed off to awaiting tyre retreader. The placenta was allowed to deliver spontaneously. The uterus was cleared of clot and debris. Uterine incision was closed with 0 Vicryl using a running stitch. A second imbricating layer was placed. Excellent hemostasis was noted. Rolled laps were removed from the abdominal cavitiy. The peritoneum was closed with a running 3-0 Monocryl. The same suture was used to approximate the rectus and pyramidalis muscles. The fascia was closed with a running 0 Vicryl. The subcutaneous layer was closed with a running 3-0 Monocryl. The same suture was used to approximate the subdermal layer. The skin was closed with a running 4-0 Monocryl and Dermabond. Sponge, lap, needle, and instrument count were correct x 2. Disposition: The patient was transferred to post anesthesia care unit in good condition History for MU History for MU Definition: * The number of deliveries resulting in a live the patient experienced prior to current hospitalization * The previous delivery of live twins or any live multiple gestation is considered one live event. *If primagravida or nulliparous is documented select zero for the number of previous live births. Live Events: Live Events: 3
[2019-10-16] MEDS ORDERED: SIMETHICONE 80 MG TAB.CHEW PO PRN (11:23)
[2019-10-16] MEDS ORDERED: ONDANSETRON HCL/PF 2 MG/ML VIAL IV PRN (11:23)
[2019-10-16] MEDS ORDERED: BISACODYL 10 MG SUPP.RECT RC PRN (11:23)
[2019-10-16] MEDS ORDERED: IBUPROFEN 800 MG TABLET PO PRN (11:23)
[2019-10-16] MEDS ORDERED: SENNOSIDES 8.6 MG TABLET PO PRN (11:23)
[2019-10-16] MEDS: oxyCODONE HCL/ACETAMINOPHEN 1 TAB TABLET PO PRN ×5 (11:37→23:49)
[2019-10-16] MEDS ORDERED: KETOROLAC TROMETHAMINE 15 MG/ML VIAL IV ONE (15:12)
[2019-10-16] MEDS: FERROUS SULFATE 325 MG TABLET PO SCH (17:45)
[2019-10-16] MEDS: ENOXAPARIN SODIUM 40 MG/0.4 ML SYRG SC SCH (19:05)
[2019-10-16] MEDS: DOCUSATE SODIUM 100 MG CAPSULE PO SCH (20:45)
[2019-10-16] MEDS: IBUPROFEN 800 MG TABLET PO PRN (21:32)
[2019-10-17] MEDS: oxyCODONE HCL/ACETAMINOPHEN 1 TAB TABLET PO PRN ×6 (03:04→22:16)
[2019-10-17] MEDS: IBUPROFEN 800 MG TABLET PO PRN ×4 (03:30→22:16)
[2019-10-17] MEDS ORDERED: ceFAZolin SODIUM 1 GM VIAL IV PRN (06:00)
[2019-10-17] MEDS: DOCUSATE SODIUM 100 MG CAPSULE PO SCH ×2 (09:58→22:16)
[2019-10-17] MEDS: FERROUS SULFATE 325 MG TABLET PO SCH ×2 (09:58→16:03)
--- NOTE | 2019-10-17 12:06 | PN ---
Subjective - Date and Time Seen Date: 10/17/19 Time: 12:05 Objective - Vitals Vitals: Last Vital Signs Temp 36.5 C 10/17/19 07:29 Pulse 69 10/17/19 07:29 Resp 18 10/17/19 07:29 BP 118/67 10/17/19 07:29 Pulse Ox 100 10/17/19 07:29 Patient denies complaints. Tolerating regular diet. Ambulating without difficulty. Pain well controlled. Lochia wnl. Abdomen - soft, appropriately tender Incision -clean, dry, intact uterus - firm, at umbilicus -1 no calf tenderness Impression: Post op day #1 s/p primary section. Baby transferred to [facility] for respiratory distress. Plan: Continue routine post-operative/ care. Cauti Physician Documentation - Urinary Catheter Management 2-way Urethral Date of Insertion: 10/16/19 Time of Insertion: 09:55 Assessment/Plan - Problems/Diagnosis (1) Non-reassuring electronic monitoring tracing Problem: Acute (2) Placental abruption in third trimester Problem: Suspected
[2019-10-17] MEDS: ENOXAPARIN SODIUM 40 MG/0.4 ML SYRG SC SCH (19:15)
[2019-10-18] MEDS: oxyCODONE HCL/ACETAMINOPHEN 1 TAB TABLET PO PRN ×3 (01:57→08:10)
[2019-10-18] MEDS: IBUPROFEN 800 MG TABLET PO PRN (04:57)
[2019-10-18] MEDS: DOCUSATE SODIUM 100 MG CAPSULE PO SCH (08:10)
[2019-10-18] MEDS: FERROUS SULFATE 325 MG TABLET PO SCH (08:10)
[2019-10-18 08:27] VITALS: BP 110/71
--- NOTE | 2019-10-18 12:16 | PN ---
Subjective - Date and Time Seen Date: 10/18/19 Time: 08:45 Objective - Vitals Vitals: Last Vital Signs Temp 37.2 C 10/18/19 08:16 Pulse 96 10/18/19 08:16 Resp 18 10/18/19 08:16 BP 110/71 10/18/19 08:16 Pulse Ox 99 10/18/19 08:16 Patient denies complaints. Ambulating well. Tolerating regular diet. Pain well controlled. Lochia wnl. Abdomen - soft, appropriately tender Incision -clean, dry, intact uterus - firm, at umbilicus -2 no calf tenderness Impression: Post op day #2 s/p primary section. Patient desires early discharge since baby was transferred to [facility] for respiratory distress. Plan: Continue routine post-operative/ care. Routine discharge instructions given. Cauti Physician Documentation - Urinary Catheter Management 2-way Urethral Date of Insertion: 10/16/19 Time of Insertion: 09:55 Assessment/Plan - Problems/Diagnosis (1) Non-reassuring electronic monitoring tracing Problem: Acute (2) Placental abruption in third trimester Problem: Suspected
== END 2019-10-18 09:30 | disposition home or self-care (01) | DRG 786 ==
LOC: OBCLINIC 18:19 → OB 21:07
PROVIDERS: ADMIT Obstetrics & Gynecology; ATTEND Obstetrics & Gynecology
CPT/HCPCS: 36415; 59025; 80307; 85025; 86850; 88307; 88888; J2405